=== PATIENT | male | born 1965 | race African-American/Black ===

== ENCOUNTER 2024-06-12 20:03 | Emergency (ER) | payer MEDICAID ==
[~2024-06-12] VITALS: Ht 188 cm; Wt 97.7 kg
[2024-06-12 20:10] VITALS: TEMP 100.8
[2024-06-12] MEDS ORDERED: ALBU18HF2 INH (20:23)
[2024-06-12] MEDS ORDERED: LISI20TA28 PO (20:26)
[2024-06-12] MEDS ORDERED: METF-900 PO (20:27)
[2024-06-12] MEDS ORDERED: FLUT16SP2 BOTHNARES (20:28)
[2024-06-12] MEDS ORDERED: CELE-193 PO (20:29)
[2024-06-12] MEDS ORDERED: ACYC-129 PO (20:31)
[2024-06-12 20:37] LABS: BASOPHILS % (AUTO) 0.4 % (0-1); EOSINOPHILS # (AUTO) 0.1 X10'3 (0-0.9); EOSINOPHILS % (AUTO) 1.7 % (0-6); HEMATOCRIT 42.7 % (42.0-52.0); HEMOGLOBIN 14.3 g/dl (14.0-17.9); LYMPHOCYTES # (AUTO) 0.6 X10'3 (1.1-4.8); LYMPHOCYTES % (AUTO) 12.7 % (21-51); MEAN CORPUSCULAR HEMOGLOBIN 29.1 PG (27.0-31.0); MEAN CORPUSCULAR HGB CONC 33.5 g/dL (33.0-36.5); MEAN CORPUSCULAR VOLUME 86.8 FL (78-98); MEAN PLATELET VOLUME 7.8 FL (7.4-10.4); MONOCYTES # (AUTO) 0.9 X10'3 (0-0.9); MONOCYTES % (AUTO) 21.4 % (2-12); NEUTROPHILS # (AUTO) 2.8 X10'3 (1.8-7.7); NEUTROPHILS % (AUTO) 63.8 % (42-75); PLATELET COUNT 132 X10'3 (140-440); RED BLOOD COUNT 4.91 X10'6 (4.70-6.10); RED CELL DISTRIBUTION WIDTH 14.5 % (11.5-14.5); WHITE BLOOD COUNT 4.3 X10'3 (4.5-11.0)
[2024-06-12 20:51] LABS: ALBUMIN 3.4 G/DL (3.4-5.0); ANION GAP 5 (8-16); BLOOD UREA NITROGEN 9 MG/DL (7-18); BUN/CREATININE RATIO 12.5 (10.0-20.0); CALCIUM 8.1 MG/DL (8.5-10.1); CHLORIDE 100 MMOL/L (99-107); CREATININE 0.72 MG/DL (0.60-1.10); GLUCOSE 96 MG/DL (70-104); MAGNESIUM 1.8 MG/DL (1.5-2.4); POTASSIUM 3.4 MMOL/L (3.5-5.1); SODIUM 139 MMOL/L (135-145); TOTAL CARBON DIOXIDE 33.6 MMOL/L (24-32); eCRCL 133 ML/MIN; eGFR > 90 ML/MIN
[2024-06-12 21:10] LABS: TOTAL CELLS COUNTED 100
[2024-06-12] MEDS: ketorolac trometh 30MG/ML vial 30 MG/ML VIAL IM ONE (22:08)
[2024-06-12] MEDS: acetaminophen 325mg tablet PO ONE (22:08)
[2024-06-12] MEDS: methylPREDNISolone sod succ 125mg/2ml vial IV ONE (22:09)
[2024-06-12] MEDS: ipratropium/albuterol 3ml nebule NEB ONE (22:49)
[2024-06-12 22:51] VITALS: PULSE 99; RESP 18; O2SAT 93
[2024-06-12 22:53] VITALS: PULSE 98; RESP 20; O2SAT 92
[2024-06-12 23:15] VITALS: BP 152/99
[2024-06-12] MEDS: albuterol 2.5 MG/3 ML nebule CONTNEB PRN (23:49)
[2024-06-12 23:53] VITALS: PULSE 92; RESP 18; O2SAT 91
[2024-06-13 00:04] VITALS: PULSE 86; RESP 18; O2SAT 96
[2024-06-13 00:20] VITALS: PULSE 89; RESP 18; O2SAT 96
[2024-06-13] MEDS ORDERED: ALBU18HF2 IH (00:43)
[2024-06-13] MEDS ORDERED: PRED20TA PO (00:43)
[2024-06-13 01:45] LABS: PRO BRAIN NATRIURETIC PEPTIDE 86 PG/ML (0-125)
== END 2024-06-13 00:56 | disposition home or self-care (01) ==
LOC: ER 20:04
DX: B34.9 Viral infection, unspecified (principal); J45.909 Unspecified asthma, uncomplicated; Z20.822 Contact with and (suspected) exposure to COVID-19; E11.9 Type 2 diabetes mellitus without complications; Z88.2 Allergy status to sulfonamides; Z79.899 Other long term (current) drug therapy; Z79.2 Long term (current) use of antibiotics
CPT/HCPCS: 36415; 71045; 80048; 83605; 83735; 83880; 84145; 84484; 85007; 85025; 87040; 87502; 87503; 87811; 93005; 94640; 94644; 96372; 96374; 99285; J1885; J2919; 94760; A7015